=== PATIENT | male | born 1990 | race Caucasian/White ===

== ENCOUNTER 2020-08-11 10:16 | Emergency (ER) | payer BC ==
[~2020-08-11] VITALS: Ht 185.4 cm; Wt 83.9 kg
[~2020-08-11 10:16] MED LIST: MELOXICAM7.5 MG PO; NORCO 10-325 T1 EACH PO; NORCO 7.5-3251 EACH PO; PERCOCET 10-321 EACH PO; ULTRAM50 MG PO
[2020-08-11] MEDS ORDERED: PRILOSEC OTC20 MG PO (11:59)
--- NOTE | 2020-08-12 06:56 | EKG ---
[facility] [address] [facility] [place], [place] [address] Signed Normal sinus rhythm T wave abnormality, consider inferior ischemia Abnormal ECG No previous ECGs available Confirmed by RASHMI MEHTA MD ([id number]) on 08/12/2020 6:56:16 AM Electronically Signed By: RASHMI MEHTA MD 08/12/20 0656 PATIENT NAME: YUE BARRIENTOS Electrocardiogram DATE OF : 88 PHYSICIAN: RASHMI MEHTA MD REPORT #: [id number] REPORT IS CONFIDENTIAL AND NOT TO BE RELEASED WITHOUT AUTHORIZATION
== END 2020-08-11 12:32 | disposition home or self-care (01) ==
LOC: ED 10:16
DX: R07.89 Other chest pain (principal); Z79.899 Other long term (current) drug therapy
CPT/HCPCS: 71045; 80053; 84484; 85025; 93005; 93010; 99285-25

== ENCOUNTER 2021-05-13 06:55 | Day surgery (SDC) | payer BC ==
[~2021-05-13] VITALS: Ht 185.4 cm; Wt 86.8 kg
[~2021-05-13 06:55] MED LIST changes: +PRILOSEC OTC20 MG PO
--- NOTE | 2021-05-14 07:56 | OR ---
[facility] [address] [place], [place] [address] Signed DATE OF OPERATION: 05/13/2021 SURGEON: Freda Brock MD PREOPERATIVE DIAGNOSIS: Right lower quadrant abdominal wall subcutaneous mass (2 x 3 cm). POSTOPERATIVE DIAGNOSIS: Right lower quadrant abdominal wall subcutaneous mass (2 x 3 cm). PROCEDURE: Excision of right lower quadrant abdominal wall mass. ESTIMATED BLOOD LOSS: None. INDICATIONS: Casie is a 30-year-old gentleman, asked to see me for a 2 x 3 cm and a subcutaneous space in the right lower quadrant of his abdominal wall. He said it has been increasing in size. It has become very hard and tender. 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 This subcutaneous mass has become an issue for him while at work and in his activities of daily living. He went to his primary care provider. He was asked to see me as the local general surgeon. I met with Casie and his in the office. He said there he could never tolerate this under local anesthetic in the office. Therefore, we brought him to the operating room with the help of our anesthesia provider. After talking with the Anesthesia provider, he elected for general LMA anesthesia along with his local anesthetic. I explained to Casie and his the nature of the incision required to remove this lesion. They understand there is risk including, but not limited to bleeding, infection, scarring, change in contour of the skin as well as possible need for additional surgeries based on pathology results. They had expressed understanding and wished to proceed. PROCEDURE NOTE: I met with Casie and his in our preop area. We could all easily see and palpate this lesion. We marked the lesion appropriately. After this, Casie was taken into the operating room and placed in the supine position under general LMA anesthesia. He was given preoperative antibiotics along with subcutaneous heparin. SCDs were utilized. He was prepped and draped in the usual sterile fashion. We used a standard oblique incision over the lesion with the help of a #15 blade knife. This was deepened with the help of the cautery. We went around the lesion bluntly with the cautery and with our Electronically Signed By: FREDA BROCK MD 05/14/21 0756 PATIENT NAME: CASIE BARRIENTOS OPERATIVE REPORT DATE OF : 88 REPORT #: [id number] PHYSICIAN: FREDA BROCK MD PCP: JOSÉ NEGRETE PAC REPORT IS CONFIDENTIAL AND NOT TO BE RELEASED WITHOUT AUTHORIZATION [facility] [address] [place] [id number] Signed p.r.n. clamp. The entire lesion was thus removed. It is clinically consistent with a very indurated lipoma. The surrounding fat was quite healthy and unremarkable. We injected local anesthetic into his abdominal wall as well as the subcutaneous tissues. The wound was irrigated and suctioned out until clear. We closed the dermis with interrupted 3-0 subcuticular Monocryl sutures. The skin edges were reapproximated with a running 5-0 fast absorbing plain gut suture. Dry gauze and tape were then applied. Casie was then awakened from his anesthesia, extubated in the OR, and taken to recovery room in stable condition. Freda Brock MD ALB/MODL /[id number] cc: KIRILL Hedrick Chart Filed Incomplete Freda Brock MD Copies: CHART FILED INCOMPLETE FREDA BROCK MD ~ Electronically Signed By: FREDA BROCK MD 05/14/21 0756 PATIENT NAME: CASIE BARRIENTOS Shweta OPERATIVE REPORT DATE OF : 88 REPORT #: [id number] PHYSICIAN: FREDA BROCK MD PCP: JOSÉ NEGRETE PAC REPORT IS CONFIDENTIAL AND NOT TO BE RELEASED WITHOUT AUTHORIZATION
== END 2021-05-13 11:50 | disposition home or self-care (01) ==
LOC: DS 06:55
PROVIDERS: ATTEND Colon & Rectal Surgery
PROC: 0JB80ZZ Excision of Abdomen Subcutaneous Tissue and Fascia, Open Approach (ICD-10-PCS; principal; 2021-05-13 08:15)
DX: D17.1 Benign lipomatous neoplasm of skin and subcutaneous tissue of trunk (principal); F17.290 Nicotine dependence, other tobacco product, uncomplicated; F17.220 Nicotine dependence, chewing tobacco, uncomplicated
CPT/HCPCS: 00300; J0690; J1100; J1644; J1885; J2250; J2405; J2704; J2765; J3010; J7121